=== PATIENT | male | born 1945 | race Caucasian/White ===

== ENCOUNTER 2018-05-02 19:07 | Emergency (ER) | payer MEDICARE, OTHER, SELFPAY ==
[2018-05-02 19:14] VITALS: BP 149/82; PULSE 67; RESP 14; TEMP 36.2; O2SAT 100
--- NOTE | 2018-05-02 19:20 | DI.RAD.S_ITS ---
PROCEDURE: XR KNEE RT 3V INDICATIONS: pain behind right knee TECHNIQUE: 3 views of the knee were acquired. COMPARISON: None. FINDINGS: Bones: No fractures or dislocations. No suspicious bony lesions. Trace degenerative osteophyte formation in the patellofemoral compartment. Soft tissues: Minimal joint effusion. No suspicious soft tissue calcifications. IMPRESSION: No acute osseous abnormality of the right knee joint. Consider followup radiographs in 7-10 days if there is continued clinical concern. Dictated by: Eron Lemons M.D. on 05/02/2018 at 19:55 Approved by: Eron Lemons M.D. on 05/02/2018 at 19:58
--- NOTE | 2018-05-02 21:12 | ED.LOWEXIN ---
HPI - Extremity Injury (Lower) General Chief Complaint: Extremity Injury, Lower Stated Complaint: INJURED R LEG Time Seen by Provider: 05/02/18 21:11 Source: patient Mode of arrival: ambulatory Limitations: no limitations History of Present Illness HPI Narrative: 72-year-old male here for evaluation of a right knee injury. Patient states that he was carrying an object up a flight of stairs when he felt a pop in his right knee. He states he has pain with standing. The pain seems to resolve when he is sitting. He is able to flex and extend his knee when he is sitting without any discomfort. Has not tried anything for symptoms prior to arrival. He has never injured this leg in the past. Related Data Home Medications Medication Instructions Recorded Confirmed cetirizine 10 mg PO HS #0 02/10/16 05/02/18 clonazepam 0.25 mg PO HS #0 02/10/16 05/02/18 duloxetine 60 mg PO QDAY #0 02/10/16 05/02/18 lamotrigine 200 mg PO HS #0 02/10/16 05/02/18 omeprazole 20 mg PO HS #0 02/10/16 05/02/18 naproxen sodium [Aleve] 440 mg PO BID 05/02/18 05/02/18 rosuvastatin [Crestor] 20 mg PO DAILY 05/02/18 05/02/18 Allergies Allergy/AdvReac Type Severity Reaction Status Date / Time Penicillins [PENICILLINS] Allergy Unknown Verified 05/02/18 19:18 Sulfa (Sulfonamide Allergy Unknown Verified 05/02/18 19:18 Antibiotics) [SULFA (SULFONAMIDE ANTIBIOTICS)] Review of Systems Constitutional Denies fatigue and Denies headache(s) ENT Ears, Nose, Mouth, and Throat: Denies headache(s) Cardiovascular Denies chest pain and Denies dyspnea Respiratory Denies dyspnea Musculoskeletal Denies tingling Comments: Right knee pain Integumentary/Breasts Denies rash Neurologic Denies headache(s), Denies tingling and Denies paresthesias Endocrine Denies fatigue Hematologic/Lymphatic Denies easy bleeding and Denies easy bruising PFSH Medical History Back pain (Acute) Depression (Acute) GERD (gastroesophageal reflux disease) (Acute) High cholesterol (Acute) Social History Smoking Status: Never smoker Social History Smoking Status: Never smoker Exam Initial Vital Signs Initial Vital Signs: Vital Signs Temperature 97.1 F L 05/02/18 19:14 Pulse Rate 67 05/02/18 19:14 Respiratory Rate 14 05/02/18 19:14 Blood Pressure 149/82 H 05/02/18 19:14 Pulse Oximetry 100 05/02/18 19:14 Const General: cooperative, comfortable, well developed, well groomed and No acute distress Orientation: alert, awake and oriented x3 Resp Effort & Inspection: normal respiratory effort Cardio Rate: regular rate Skin Lesions: no lesions Rashes: no rashes Neuro Speech: speech normal Motor: muscle tone normal throughout Sensory Exam: no sensory deficits noted Extrem Other: hamstring bilateral nontender. No tenderness to palpation over the quadriceps or patellar tendon. Able to do straight leg raise without any problems. Does have some tenderness to palpation along the medial joint line. No lateral joint line tenderness. ACL MCL PCL and LCL intact functional testing. Psych Appearance: grossly normal and well kempt Course Orders Ordered: ED Orders 05/02/18 19:20 XR knee RT 3V Stat Vital Signs - 8 hr 05/02/18 19:14 Temperature 97.1 F L Pulse Rate 67 Respiratory Rate 14 Blood Pressure 149/82 H Pulse Oximetry 100 [facility] - Extremity Injury (Lower) Imaging Data X-ray knee: Radiologist's impression: [place] [address] XRay Report Signed Patient: Vishnu Billy [facility]#: [id number] : 6Acct:[id number] Age/Sex: 72 / MDate of Service: 05/02/18 Loc: ED Accession Number: [id number] Procedure: XR knee RT 3V Ordering Provider: Alejandro Chávez D.O. PROCEDURE: XR KNEE RT 3V INDICATIONS: pain behind right knee TECHNIQUE: 3 views of the knee were acquired. COMPARISON: None. FINDINGS: Bones: No fractures or dislocations. No suspicious bony lesions. Trace degenerative osteophyte formation in the patellofemoral compartment. Soft tissues: Minimal joint effusion. No suspicious soft tissue calcifications. IMPRESSION: No acute osseous abnormality of the right knee joint. Consider followup radiographs in 7-10 days if there is continued clinical concern. Dictated by: Eron Lemons M.D. on 05/02/2018 at 19:55 Approved by: Eron Lemons M.D. on 05/02/2018 at 19:58 MDM Narrative Medical decision making narrative: patient neurovascular intact. No fractures on the x-ray. Does have medial joint line tenderness. Does have some concern for a meniscal injury. I discussed this with the patient. He was given crutches and an Chele bandage for comfort. Informed to contact his primary care doctor if symptoms do not improved discussed the indications for an MRI. The patient expressed understanding and agreement with plan. Discharge Plan Departure Patient Disposition: Home Clinical Impression: Injury of knee, right Qualifiers: Encounter type: initial encounter Qualified Code(s): S89.91XA - Unspecified injury of right lower leg, initial encounter Discharge Date/Time: 05/02/18 21:51 Interventions: ED Discharge Assessment Last Done: 05/02/18 21:51 Instructions: DI for Knee Sprain, DI for Knee Pain Activity Restrictions/Additional Instructions: the crutches are for your comfort. You can walk on your knee as you are able to. Continue with the Advil. Contact your primary doctor for a follow-up. Return to the emergency department for any new or worsening symptoms Prescriptions: No Action lamotrigine 200 MG tablet 200 mg PO HS Qty: 0 RF: 0 clonazepam 0.5 MG tablet 0.25 mg PO HS Qty: 0 RF: 0 omeprazole 40 MG capsule,delayed release(DR/EC) 20 mg PO HS Qty: 0 RF: 0 cetirizine 10 MG tablet 10 mg PO HS Qty: 0 RF: 0 duloxetine 60 MG capsule,delayed release(DR/EC) 60 mg PO QDAY Qty: 0 RF: 0 rosuvastatin [Crestor] 20 mg Tablet 20 mg PO DAILY RF: 0 naproxen sodium [Aleve] 220 mg Capsule 440 mg PO BID RF: 0
== END 2018-05-02 21:51 | disposition home or self-care (01) ==
PROVIDERS: Emergency Provider Emergency Medicine; Family Provider Physician Assistant
DX: S89.91XA Unspecified injury of right lower leg, initial encounter (principal)
CPT/HCPCS: 73562; 99282; 99283